=== PATIENT | male | born 1960 | race Caucasian/White ===

== ENCOUNTER 2023-09-12 13:38 | Emergency (ER) | payer OTHER ==
[2023-09-12 14:00] VITALS: BP 164/62; PULSE 78; RESP 18; TEMP 98.8; BMI 38.0
== END 2023-09-12 16:25 | disposition home or self-care (01) ==
LOC: JERFT 13:38
DX: M79.89 Other specified soft tissue disorders (principal); X50.1XXA Overexertion from prolonged static or awkward postures, initial encounter
CPT/HCPCS: 73610-TC-LT-FY; 73630-TC-LT; 93971-TC; 99284-25